=== PATIENT | male | born 1990 | race Caucasian/White ===

== ENCOUNTER 2016-07-28 15:20 | Emergency (ER) | payer OTHER ==
[~2016-07-28] VITALS: Ht 182.9 cm; Wt 107.5 kg
[2016-07-28 15:58] VITALS: BP 131/65
[2016-07-28] MEDS ORDERED: BACITRACIN TOP OINT 1 UD PKG TOP ONE ×2 (16:45→17:00)
[2016-07-28] MEDS ORDERED: LIDOCAINE 1% HCL (LOCAL ANESTH.) INJ 20ML MDV IJ ONE (16:45)
[2016-07-28] MEDS ORDERED: cefTRIAXone SOD 1,000 MG VL IM ONE (17:15)
[2016-07-28] MEDS ORDERED: KETOROLAC TROMETH 60MG/2ML VIAL IM ONE (17:15)
== END 2016-07-28 17:45 | disposition home or self-care (01) ==
LOC: ER 15:26
DX: S61.411A Laceration without foreign body of right hand, initial encounter (principal); W45.8XXA Other foreign body or object entering through skin, initial encounter; Y93.89 Activity, other specified; Y99.8 Other external cause status; Y92.69 Other specified industrial and construction area as the place of occurrence of the external cause
CPT/HCPCS: 12004; 96372; 99284; J0696; J1885; J2001